=== PATIENT | female | born 1960 | race Caucasian/White ===

== ENCOUNTER 2021-03-29 06:22 | Inpatient (IN) ==
[2021-03-29] MEDS ORDERED: CeFAZolin Syr 2,000MG/20 ML 2,000 MG/20 ML SYRINGE IVPB ONE ×2 (06:56→14:30)
[2021-03-29] MEDS ORDERED: Ringers Solution, Lactated 1,000 ML IVC SCH (07:00)
[2021-03-29] MEDS ORDERED: *HR* Rocuronium Bromide 50 MG/5 ML VIAL ONE (07:15)
[2021-03-29] MEDS ORDERED: *HR* Succinylcholine 200 MG/10 ML VIAL IVP ONE (07:15)
[2021-03-29] MEDS ORDERED: Lidocaine HCL 4 ML Topical Solution (Laryng-O-Jet Kit Sterile Pak) TP ONE (07:15)
[2021-03-29] MEDS ORDERED: Ondansetron 4 MG/2 ML VIAL ONE (07:15)
[2021-03-29] MEDS ORDERED: Lidocaine -MPF 2% 2 ML VIAL ONE (07:15)
[2021-03-29] MEDS ORDERED: *HR* Propofol 200 MG/20 ML VIAL IVP ONE (07:16)
[2021-03-29] MEDS ORDERED: *HR* FentaNYL (PF) 100 MCG/2 ML VIAL ONE ×3 (07:16→14:54)
[2021-03-29] MEDS ORDERED: *HR* Remifentanil 1 MG VIAL IVP ONE ×2 (07:16→13:41)
[2021-03-29] MEDS ORDERED: Promethazine 6.25 MG in Water for inj. (sterile) 20 ML IVPB PRN (07:19)
[2021-03-29] MEDS ORDERED: *HR* HYDROmorphone PF 0.5 MG/0.5 ML SYRINGE IVP PRN (07:19)
[2021-03-29] MEDS ORDERED: Ondansetron 4 MG/2 ML VIAL IVP PRN ×2 (07:19→17:08)
[2021-03-29] MEDS ORDERED: *HR* OxyCODONE Immed Rel 5 MG TABLET PO PRN (07:19)
[2021-03-29] MEDS ORDERED: Heparin 1,000 UNITS/500 mL 500 ML ONE (07:24)
[2021-03-29] MEDS ORDERED: Bacitracin 50,000 UNIT, Polymyxin B Sulfate 500,000 UNIT, Sodium Chloride IRRigation 1,... IR ONE (07:45)
[2021-03-29] MEDS ORDERED: EPHEDrine 50 MG/ML VIAL ONE (08:26)
[2021-03-29] MEDS ORDERED: *HR* Midazolam HCl 2 MG/2 ML VIAL ONE (08:28)
[2021-03-29] MEDS ORDERED: Sugammadex Sodium 200 MG/2 ML VIAL IV ONE (10:17)
[2021-03-29 10:59] LABS: ABG Base Excess -2 mEq/L (-2 to 3); ABG Chloride 106 mEq/L (98-107); ABG Glucose 130 mg/dL (60-95); ABG HCO3 22 mEq/L (21-27); ABG Ionized Calcium 1.13 mmol/L (1.15-1.35); ABG Oxygen Saturation 100 % (95-98); ABG PCO2 34 mmHg (35-45); ABG PH 7.42 pH Units (7.32-7.45); ABG PO2 226 mmHg (85-104); ABG TCO2 23 mEq/L (20-26)
[2021-03-29] MEDS ORDERED: Albumin Human 5% 25.0 GM/500 ML IV.SOLN ONE ×2 (12:02→13:44)
[2021-03-29] MEDS ORDERED: *HR* HYDROMORPHONE 2 MG/ML VIAL ONE ×2 (12:52→15:55)
[2021-03-29 13:21] LABS: ABG Base Excess -2 mEq/L (-2 to 3); ABG Chloride 105 mEq/L (98-107); ABG Glucose 153 mg/dL (60-95); ABG HCO3 24 mEq/L (21-27); ABG Ionized Calcium 1.11 mmol/L (1.15-1.35); ABG Oxygen Saturation 100 % (95-98); ABG PCO2 41 mmHg (35-45); ABG PH 7.37 pH Units (7.32-7.45); ABG PO2 207 mmHg (85-104); ABG TCO2 25 mEq/L (20-26)
[2021-03-29] MEDS ORDERED: ceFAZolin 2,000 MG in 0.9 % Sodium Chloride 100 ML IVPB ONE (13:22)
[2021-03-29] MEDS ORDERED: *HR* Phenylephrine 10 MG/ML VIAL ONE (13:34)
[2021-03-29] MEDS ORDERED: *HR* Vasopressin 20 UNIT/ML VIAL ONE (13:44)
[2021-03-29] MEDS ORDERED: ACETAMINOPHEN 650 MG PO PRN (17:08)
[2021-03-29] MEDS ORDERED: Acetaminophen 325 MG TABLET PO PRN (17:08)
[2021-03-29] MEDS ORDERED: Naloxone 0.4 MG/ML INJ IVP PRN (17:08)
[2021-03-29] MEDS ORDERED: (Diclofenac Sodium [Voltaren] 100 GM Gel) TP PRN (17:34)
[2021-03-29] MEDS: ALOSETRON HCL 0.5 MG PO SCH (20:27)
[2021-03-29] MEDS: Gabapentin 300 MG CAPSULE PO SCH (20:37)
[2021-03-29] MEDS: rOPINIRole 1 MG TABLET PO SCH (20:37)
[2021-03-29] MEDS: atenoloL 50 MG TABLET PO SCH (20:37)
[2021-03-29] MEDS: Diclofenac Sodium (DR) 75 MG TABLET.DR PO SCH (22:12)
[2021-03-29] MEDS: *HR* OxyCODONE Immed Rel 5 MG TABLET PO PRN (22:12)
[2021-03-29] MEDS: CeFAZolin 2 GM/120 ML BAG IVPB SCH (22:13)
[2021-03-30] MEDS: *HR* OxyCODONE Immed Rel 5 MG TABLET PO PRN ×4 (04:12→22:22)
[2021-03-30] MEDS: CeFAZolin 2 GM/120 ML BAG IVPB SCH (04:12)
[2021-03-30] MEDS: Ringers Solution, Lactated 1,000 ML IVC SCH ×4 (08:12→22:24)
[2021-03-30] MEDS: methIMAzole 5 MG TABLET PO SCH (08:37)
[2021-03-30] MEDS: lisinopriL 20 MG TABLET PO SCH (08:37)
[2021-03-30] MEDS: atenoloL 50 MG TABLET PO SCH ×2 (08:37→20:32)
[2021-03-30] MEDS: NIFEdipine XL (24 HR) 30 MG TAB.ER.24 PO SCH (08:37)
[2021-03-30] MEDS: ARIPiprazole 10 MG TABLET PO SCH (08:37)
[2021-03-30] MEDS: Diclofenac Sodium (DR) 75 MG TABLET.DR PO SCH ×2 (08:38→20:32)
[2021-03-30] MEDS: Gabapentin 300 MG CAPSULE PO SCH ×3 (08:38→20:32)
[2021-03-30] MEDS: ALOSETRON HCL 0.5 MG PO SCH ×2 (08:38→20:33)
[2021-03-30 12:00] LABS: Basophils % 0.1 %; Hematocrit 23.8 % (35.3-44.9); Hemoglobin 7.7 g/dL (11.5-15.4); Immature Granulocytes % 0.5 % (0-4); Immature Platelets 5.9 % (1.1-6.1); Lymphocytes # 1.8 K/mcL (0.6-4.6); Lymphocytes % 10.2 %; Mean Corpuscular HGB Conc 32.4 g/dL (31.6-35.5); Mean Corpuscular Hemoglobin 29.1 pg (28.0-33.3); Mean Corpuscular Volume 89.8 fL (83.0-100.0); Mean Platelet Volume 10.3 fL (9.4-12.4); Monocytes # 1.4 K/mcL (0.0-1.3); Monocytes % 8.2 %; Neutrophils # 14.1 K/mcL (1.6-8.9); Platelet Count 130 K/mcL (140-400); Red Blood Count 2.65 M/mcL (3.82-4.97); Red Cell Distribution Width 13.2 % (11.5-14.5); White Blood Count 17.4 K/mcL (4.3-11.1)
[2021-03-30 12:16] LABS: BUN/Creatinine Ratio 17 (6-26); Blood Urea Nitrogen 11 mg/dL (8-23); Carbon Dioxide 26 mEq/L (23-29); Chloride 107 mEq/L (98-107); Glucose 118 mg/dL (70-105); Osmolality,Calculated 288 (280-300); Potassium 3.4 mEq/L (3.5-5.1); Sodium 139 mEq/L (136-145); eGFR For African Americans > 60 (> 60); eGFR For Non-African Americans > 60 (> 60)
[2021-03-30] MEDS ORDERED: 0.9 % Sodium Chloride 250 ML ONE (14:41)
[2021-03-30] MEDS: tiZANidine 4 MG TABLET PO PRN (17:57)
[2021-03-30] MEDS: *HR* HYDROcodone/Acet 5/325 mg TABLET PO PRN (17:57)
[2021-03-30 19:42] LABS: Hematocrit 25.1 % (35.3-44.9); Hemoglobin 8.7 g/dL (11.5-15.4)
[2021-03-30] MEDS: rOPINIRole 1 MG TABLET PO SCH (20:31)
[2021-03-31] MEDS: *HR* HYDROcodone/Acet 5/325 mg TABLET PO PRN ×3 (02:59→15:03)
[2021-03-31] MEDS: tiZANidine 4 MG TABLET PO PRN ×2 (05:45→23:13)
[2021-03-31] MEDS: NIFEdipine XL (24 HR) 30 MG TAB.ER.24 PO SCH (09:11)
[2021-03-31] MEDS: ARIPiprazole 10 MG TABLET PO SCH (09:11)
[2021-03-31] MEDS: methIMAzole 5 MG TABLET PO SCH (09:11)
[2021-03-31] MEDS: Gabapentin 300 MG CAPSULE PO SCH ×3 (09:11→21:16)
[2021-03-31] MEDS: Diclofenac Sodium (DR) 75 MG TABLET.DR PO SCH ×2 (09:11→21:16)
[2021-03-31] MEDS: lisinopriL 20 MG TABLET PO SCH (09:11)
[2021-03-31] MEDS: atenoloL 50 MG TABLET PO SCH ×2 (09:11→21:15)
[2021-03-31] MEDS: Ringers Solution, Lactated 1,000 ML IVC SCH (09:12)
[2021-03-31] MEDS: ALOSETRON HCL 0.5 MG PO SCH ×2 (09:13→21:16)
[2021-03-31] MEDS: *HR* OxyCODONE Immed Rel 5 MG TABLET PO PRN ×2 (11:05→21:15)
[2021-03-31 11:13] LABS: Hematocrit 26.6 % (35.3-44.9); Immature Platelets 6.6 % (1.1-6.1); Mean Corpuscular HGB Conc 33.8 g/dL (31.6-35.5); Mean Corpuscular Hemoglobin 30.2 pg (28.0-33.3); Mean Corpuscular Volume 89.3 fL (83.0-100.0); Mean Platelet Volume 11.1 fL (9.4-12.4); Red Blood Count 2.98 M/mcL (3.82-4.97); Red Cell Distribution Width 13.2 % (11.5-14.5); White Blood Count 14.3 K/mcL (4.3-11.1)
[2021-03-31 11:52] LABS: BUN/Creatinine Ratio 18 (6-26); Blood Urea Nitrogen 12 mg/dL (8-23); Calcium 8.3 mg/dL (8.6-10.3); Carbon Dioxide 26 mEq/L (23-29); Chloride 105 mEq/L (98-107); Glucose 127 mg/dL (70-105); Osmolality,Calculated 287 (280-300); Potassium 3.2 mEq/L (3.5-5.1); Sodium 138 mEq/L (136-145); eGFR For African Americans > 60 (> 60); eGFR For Non-African Americans > 60 (> 60)
[2021-03-31] MEDS: rOPINIRole 1 MG TABLET PO SCH (21:15)
[2021-04-01] MEDS: *HR* OxyCODONE Immed Rel 5 MG TABLET PO PRN ×2 (01:57→09:28)
[2021-04-01] MEDS: *HR* HYDROcodone/Acet 5/325 mg TABLET PO PRN ×2 (04:42→12:23)
[2021-04-01] MEDS: lisinopriL 20 MG TABLET PO SCH (09:26)
[2021-04-01] MEDS: atenoloL 50 MG TABLET PO SCH (09:27)
[2021-04-01] MEDS: Diclofenac Sodium (DR) 75 MG TABLET.DR PO SCH (09:27)
[2021-04-01] MEDS: Gabapentin 300 MG CAPSULE PO SCH (09:27)
[2021-04-01] MEDS: methIMAzole 5 MG TABLET PO SCH (09:27)
[2021-04-01] MEDS: ARIPiprazole 10 MG TABLET PO SCH (09:28)
[2021-04-01] MEDS: ALOSETRON HCL 0.5 MG PO SCH (09:28)
[2021-04-01] MEDS: NIFEdipine XL (24 HR) 30 MG TAB.ER.24 PO SCH (09:28)
[2021-04-01 10:52] LABS: Hemoglobin 8.9 g/dL (11.5-15.4); Mean Corpuscular Hemoglobin 29.8 pg (28.0-33.3); Mean Corpuscular Volume 90.3 fL (83.0-100.0); Mean Platelet Volume 10.2 fL (9.4-12.4); Platelet Count 149 K/mcL (140-400); Red Blood Count 2.99 M/mcL (3.82-4.97); White Blood Count 14.1 K/mcL (4.3-11.1)
[2021-04-01 11:16] VITALS: BP 103/63
[2021-04-01 11:20] LABS: BUN/Creatinine Ratio 20 (6-26); Blood Urea Nitrogen 13 mg/dL (8-23); Calcium 8.6 mg/dL (8.6-10.3); Carbon Dioxide 24 mEq/L (23-29); Chloride 105 mEq/L (98-107); Glucose 117 mg/dL (70-105); Osmolality,Calculated 285 (280-300); Potassium 3.2 mEq/L (3.5-5.1); Sodium 137 mEq/L (136-145); eGFR For African Americans > 60 (> 60); eGFR For Non-African Americans > 60 (> 60)
[2021-04-04] MEDS ORDERED: Fluconazole 150 MG TABLET PO SCH (09:00)
[2021-04-04] MEDS ORDERED: NON-FORMULARY MEDICATION 1 EACH EACH (Alendronate Sodium [Fosamax] 70 MG Tablet) PO SCH (15:59)
== END 2021-04-01 16:30 | disposition home health service (06) | DRG 454 ==
LOC: 3NENU 06:22 → SAMDAY 06:22 → 3NENU 17:08
PROVIDERS: ADMIT Orthopaedic Surgery Orthopaedic Surgery of the Spine; ATTEND Orthopaedic Surgery Orthopaedic Surgery of the Spine

== ENCOUNTER 2022-01-09 10:58 | Inpatient (IN) ==
[2022-01-09] MEDS ORDERED: Piperacillin/Tazobactam 3.375 GM in 0.9 % Sodium Chloride Mini Bag 100 ML IVPB ONE (11:14)
[2022-01-09] MEDS ORDERED: *HR* FentaNYL (PF) 100 MCG/2 ML VIAL IVP ONE (11:19)
[2022-01-09 12:19] LABS: BUN/Creatinine Ratio 36 (6-26); Blood Urea Nitrogen 28 mg/dL (8-23); Calcium 8.8 mg/dL (8.6-10.3); Carbon Dioxide 24 mEq/L (23-29); Chloride 99 mEq/L (98-107); Glucose 110 mg/dL (70-105); Osmolality,Calculated 280 (280-300); Potassium 3.4 mEq/L (3.5-5.1); Sodium 132 mEq/L (136-145); eGFR For African Americans > 60 (> 60); eGFR For Non-African Americans > 60 (> 60)
[2022-01-09 13:01] LABS: Hematocrit 35.4 % (35.3-44.9); Hemoglobin 11.8 g/dL (11.5-15.4); Mean Corpuscular HGB Conc 33.3 g/dL (31.6-35.5); Mean Corpuscular Hemoglobin 29.4 pg (28.0-33.3); Mean Corpuscular Volume 88.1 fL (83.0-100.0); Mean Platelet Volume 10.8 fL (9.4-12.4); Platelet Count 209 K/mcL (140-400); Red Blood Count 4.02 M/mcL (3.82-4.97); Red Cell Distribution Width 13.6 % (11.5-14.5); White Blood Count 17.7 K/mcL (4.3-11.1)
[2022-01-09] MEDS ORDERED: Naloxone 0.4 MG/ML INJ IVP PRN ×2 (13:13→13:45)
[2022-01-09] MEDS ORDERED: Ipratropium Neb 0.5 MG NEBULIZER IH PRN (13:13)
[2022-01-09] MEDS ORDERED: Albuterol 2.5 MG/3 ML NEBULIZER IH PRN (13:13)
[2022-01-09] MEDS ORDERED: *HR* Labetalol 20 MG/4 ML SYRINGE IVP PRN (13:13)
[2022-01-09] MEDS ORDERED: Acetaminophen IV 1,000 MG/100 ML BAG IVPB PRN (13:13)
[2022-01-09] MEDS ORDERED: flumazeniL 0.5 MG/5 ML VIAL IVP PRN (13:13)
[2022-01-09] MEDS ORDERED: *HR* OxyCODONE Immed Rel 5 MG TABLET PO PRN (13:13)
[2022-01-09] MEDS ORDERED: *HR* HYDROmorphone PF 0.5 MG/0.5 ML SYRINGE IVP PRN (13:13)
[2022-01-09] MEDS ORDERED: Promethazine 6.25 MG in Water for inj. (sterile) 20 ML IVPB PRN (13:13)
[2022-01-09] MEDS ORDERED: Ondansetron 4 MG/2 ML VIAL IVP PRN (13:13)
[2022-01-09] MEDS ORDERED: *HR* FentaNYL (PF) 100 MCG/2 ML VIAL ONE ×3 (13:16→15:38)
[2022-01-09] MEDS ORDERED: *HR* Midazolam HCl 2 MG/2 ML VIAL ONE (13:16)
[2022-01-09] MEDS ORDERED: *HR* Propofol 200 MG/20 ML VIAL IVP ONE ×2 (13:16→16:29)
[2022-01-09] MEDS ORDERED: Lidocaine -MPF 2% 5 ML VIAL ONE (13:17)
[2022-01-09] MEDS ORDERED: *HR* Rocuronium Bromide 50 MG/5 ML VIAL ONE ×2 (13:17→15:35)
[2022-01-09] MEDS ORDERED: Lidocaine HCL 4 ML Topical Solution (Laryng-O-Jet Kit Sterile Pak) TP ONE (13:17)
[2022-01-09 13:36] LABS: Lymphocytes # 0.7 K/mcL (0.6-4.6); Monocytes # 0.4 K/mcL (0.0-1.3); Neutrophils # 16.6 K/mcL (1.6-8.9)
[2022-01-09 13:37] LABS: Platelet Estimate Normal (Normal)
[2022-01-09] MEDS ORDERED: CefOXitin 1,000 MG VIAL ONE (13:44)
[2022-01-09] MEDS ORDERED: *HR* Metoprolol 5 MG/5 ML VIAL IVP ONE ×2 (14:28→17:27)
[2022-01-09] MEDS ORDERED: *HR* HYDROMORPHONE 2 MG/ML VIAL ONE (16:12)
[2022-01-09] MEDS ORDERED: *HR* Labetalol 20 MG/4 ML SYRINGE IVP ONE (16:16)
[2022-01-09] MEDS: 0.9 % Sodium Chloride 1,000 ML IVC SCH (19:20)
[2022-01-09 19:43] LABS: Hematocrit 37.5 % (35.3-44.9); Hemoglobin 12.3 g/dL (11.5-15.4); Mean Corpuscular HGB Conc 32.8 g/dL (31.6-35.5); Mean Corpuscular Hemoglobin 29.1 pg (28.0-33.3); Mean Corpuscular Volume 88.7 fL (83.0-100.0); Mean Platelet Volume 10.6 fL (9.4-12.4); Platelet Count 231 K/mcL (140-400); Red Blood Count 4.23 M/mcL (3.82-4.97); Red Cell Distribution Width 13.6 % (11.5-14.5); White Blood Count 16.1 K/mcL (4.3-11.1)
[2022-01-09 20:57] LABS: Lymphocytes # 0.3 K/mcL (0.6-4.6); Neutrophils # 15.8 K/mcL (1.6-8.9)
[2022-01-09 20:58] LABS: Platelet Estimate Normal (Normal)
[2022-01-09] MEDS: Piperacillin/Tazobactam 3.375 GM in 0.9 % Sodium Chloride Mini Bag 100 ML IVPB SCH (23:37)
[2022-01-10] MEDS: Morphine Sulfate 2 MG/ML SYRINGE IVP PRN ×4 (01:18→20:03)
[2022-01-10 05:38] LABS: BUN/Creatinine Ratio 30 (6-26); Blood Urea Nitrogen 25 mg/dL (8-23); Calcium 8.4 mg/dL (8.6-10.3); Carbon Dioxide 26 mEq/L (23-29); Chloride 103 mEq/L (98-107); Glucose 129 mg/dL (70-105); Osmolality,Calculated 290 (280-300); Potassium 4.3 mEq/L (3.5-5.1); Sodium 137 mEq/L (136-145); Thyroid Stimulating Hormone 0.227 mcIU/mL (0.340-5.600); eGFR For African Americans > 60 (> 60); eGFR For Non-African Americans > 60 (> 60)
[2022-01-10] MEDS: Piperacillin/Tazobactam 3.375 GM in 0.9 % Sodium Chloride Mini Bag 100 ML IVPB SCH ×3 (09:37→23:24)
[2022-01-10] MEDS: Pantoprazole 40 MG VIAL IVP SCH (09:38)
[2022-01-10] MEDS: 0.9 % Sodium Chloride 1,000 ML IVC SCH (13:00)
[2022-01-10] MEDS: Ondansetron 4 MG/2 ML VIAL IVP PRN (14:01)
[2022-01-11] MEDS: Morphine Sulfate 2 MG/ML SYRINGE IVP PRN ×4 (00:21→22:26)
[2022-01-11] MEDS: Ondansetron 4 MG/2 ML VIAL IVP PRN (00:21)
[2022-01-11] MEDS: 0.9 % Sodium Chloride 1,000 ML IVC SCH (05:04)
[2022-01-11 08:26] LABS: Basophils # 0.1 K/mcL (0.0-0.2); Basophils % 0.4 %; Eosinophils # 0.1 K/mcL (0.0-0.6); Eosinophils % 0.3 %; Hematocrit 34.8 % (35.3-44.9); Hemoglobin 11.7 g/dL (11.5-15.4); Immature Granulocytes % 1.4 % (0-4); Lymphocytes # 1.3 K/mcL (0.6-4.6); Lymphocytes % 7.5 %; Mean Corpuscular HGB Conc 33.6 g/dL (31.6-35.5); Mean Corpuscular Hemoglobin 29.2 pg (28.0-33.3); Mean Corpuscular Volume 86.8 fL (83.0-100.0); Mean Platelet Volume 9.8 fL (9.4-12.4); Monocytes # 1.5 K/mcL (0.0-1.3); Neutrophils # 13.6 K/mcL (1.6-8.9); Platelet Count 249 K/mcL (140-400); Red Blood Count 4.01 M/mcL (3.82-4.97); Red Cell Distribution Width 13.2 % (11.5-14.5); Segmented Neutrophils % 81.4 %; White Blood Count 16.8 K/mcL (4.3-11.1)
[2022-01-11 08:45] LABS: Alanine Aminotransferase 15 Units/L (7-52); Albumin 3.3 g/dL (3.5-5.7); Albumin/Globulin Ratio 1.1 (1.1-2.2); Alkaline Phosphatase 67 Units/L (34-104); Aspartate Amino Transferase 27 Units/L (13-39); BUN/Creatinine Ratio 25 (6-26); Bilirubin,Total 0.6 mg/dL (0.3-1.0); Blood Urea Nitrogen 16 mg/dL (8-23); Calcium 8.4 mg/dL (8.6-10.3); Carbon Dioxide 28 mEq/L (23-29); Chloride 98 mEq/L (98-107); Globulin 2.9 g/dL (2.4-3.5); Glucose 93 mg/dL (70-105); Osmolality,Calculated 287 (280-300); Potassium 2.7 mEq/L (3.5-5.1); Sodium 138 mEq/L (136-145); Total Protein 6.2 g/dL (6.4-8.9); eGFR For African Americans > 60 (> 60); eGFR For Non-African Americans > 60 (> 60)
[2022-01-11] MEDS: Pantoprazole 40 MG VIAL IVP SCH (08:55)
[2022-01-11] MEDS: Piperacillin/Tazobactam 3.375 GM in 0.9 % Sodium Chloride Mini Bag 100 ML IVPB SCH ×3 (08:56→23:42)
[2022-01-11] MEDS: lisinopriL 20 MG TABLET PO SCH ×2 (08:57→19:31)
[2022-01-11] MEDS: NIFEdipine XL (24 HR) 30 MG TAB.ER.24 PO SCH (08:57)
[2022-01-11] MEDS: atenoloL 50 MG TABLET PO SCH ×2 (08:57→19:31)
[2022-01-11 09:10] LABS: Magnesium 1.6 mg/dL (1.6-2.6); Phosphorous 1.8 mg/dL (2.7-4.5)
[2022-01-11] MEDS ORDERED: Potassium Chloride Elixir 20 MEQ/15 ML UDC PO ONE (10:03)
[2022-01-12] MEDS: 0.9 % Sodium Chloride 1,000 ML IVC SCH ×2 (02:49→20:12)
[2022-01-12 05:59] LABS: Basophils # 0.1 K/mcL (0.0-0.2); Basophils % 0.8 %; Eosinophils % 0.2 %; Hematocrit 35.4 % (35.3-44.9); Hemoglobin 12.1 g/dL (11.5-15.4); Immature Granulocytes % 3.2 % (0-4); Lymphocytes # 1.8 K/mcL (0.6-4.6); Mean Corpuscular HGB Conc 34.2 g/dL (31.6-35.5); Mean Corpuscular Hemoglobin 29.2 pg (28.0-33.3); Mean Corpuscular Volume 85.3 fL (83.0-100.0); Mean Platelet Volume 9.6 fL (9.4-12.4); Monocytes # 1.7 K/mcL (0.0-1.3); Monocytes % 11.1 %; Platelet Count 262 K/mcL (140-400); Red Blood Count 4.15 M/mcL (3.82-4.97); Red Cell Distribution Width 13.3 % (11.5-14.5); Segmented Neutrophils % 72.7 %; White Blood Count 15.1 K/mcL (4.3-11.1)
[2022-01-12 06:54] LABS: Alanine Aminotransferase 13 Units/L (7-52); Albumin 3.2 g/dL (3.5-5.7); Albumin/Globulin Ratio 1.2 (1.1-2.2); Alkaline Phosphatase 64 Units/L (34-104); Aspartate Amino Transferase 19 Units/L (13-39); BUN/Creatinine Ratio 23 (6-26); Bilirubin,Total 0.7 mg/dL (0.3-1.0); Blood Urea Nitrogen 14 mg/dL (8-23); Calcium 8.4 mg/dL (8.6-10.3); Carbon Dioxide 27 mEq/L (23-29); Chloride 99 mEq/L (98-107); Globulin 2.7 g/dL (2.4-3.5); Glucose 129 mg/dL (70-105); Magnesium 1.4 mg/dL (1.6-2.6); Osmolality,Calculated 282 (280-300); Phosphorous 2.4 mg/dL (2.7-4.5); Sodium 135 mEq/L (136-145); Total Protein 5.9 g/dL (6.4-8.9); eGFR For African Americans > 60 (> 60); eGFR For Non-African Americans > 60 (> 60)
[2022-01-12] MEDS ORDERED: Potassium Chloride Elixir 20 MEQ/15 ML UDC PO ONE (07:49)
[2022-01-12] MEDS: NIFEdipine XL (24 HR) 30 MG TAB.ER.24 PO SCH (09:05)
[2022-01-12] MEDS: lisinopriL 20 MG TABLET PO SCH ×2 (09:05→20:10)
[2022-01-12] MEDS: atenoloL 50 MG TABLET PO SCH ×2 (09:05→20:10)
[2022-01-12] MEDS: ARIPiprazole 10 MG TABLET PO SCH (09:05)
[2022-01-12] MEDS: Pantoprazole 40 MG VIAL IVP SCH (09:06)
[2022-01-12] MEDS: Piperacillin/Tazobactam 3.375 GM in 0.9 % Sodium Chloride Mini Bag 100 ML IVPB SCH ×3 (09:09→23:50)
[2022-01-12] MEDS: Acetaminophen 325 MG TABLET PO SCH ×3 (13:43→23:51)
[2022-01-12] MEDS: polyethylene glycoL 3350 17 GM POWD.PACK PO SCH (13:43)
[2022-01-12] MEDS: Ibuprofen 600 MG TABLET PO SCH ×2 (17:40→23:51)
[2022-01-13 02:08] LABS: Basophils # 0.1 K/mcL (0.0-0.2); Basophils % 0.8 %; Eosinophils # 0.1 K/mcL (0.0-0.6); Hematocrit 34.1 % (35.3-44.9); Hemoglobin 11.4 g/dL (11.5-15.4); Immature Granulocytes % 4.5 % (0-4); Lymphocytes # 1.9 K/mcL (0.6-4.6); Lymphocytes % 16.4 %; Mean Corpuscular HGB Conc 33.4 g/dL (31.6-35.5); Mean Corpuscular Hemoglobin 29.2 pg (28.0-33.3); Mean Corpuscular Volume 87.2 fL (83.0-100.0); Mean Platelet Volume 9.7 fL (9.4-12.4); Monocytes # 1.4 K/mcL (0.0-1.3); Monocytes % 11.9 %; Neutrophils # 7.7 K/mcL (1.6-8.9); Platelet Count 283 K/mcL (140-400); Red Blood Count 3.91 M/mcL (3.82-4.97); Red Cell Distribution Width 13.5 % (11.5-14.5); Segmented Neutrophils % 65.4 %; White Blood Count 11.8 K/mcL (4.3-11.1)
[2022-01-13 02:30] LABS: Alanine Aminotransferase 14 Units/L (7-52); Albumin 2.8 g/dL (3.5-5.7); Albumin/Globulin Ratio 1.1 (1.1-2.2); Alkaline Phosphatase 54 Units/L (34-104); Aspartate Amino Transferase 17 Units/L (13-39); BUN/Creatinine Ratio 18 (6-26); Bilirubin,Total 0.7 mg/dL (0.3-1.0); Blood Urea Nitrogen 11 mg/dL (8-23); Calcium 7.7 mg/dL (8.6-10.3); Carbon Dioxide 25 mEq/L (23-29); Chloride 102 mEq/L (98-107); Globulin 2.5 g/dL (2.4-3.5); Glucose 113 mg/dL (70-105); Magnesium 1.4 mg/dL (1.6-2.6); Osmolality,Calculated 278 (280-300); Phosphorous 3.1 mg/dL (2.7-4.5); Potassium 2.8 mEq/L (3.5-5.1); Sodium 134 mEq/L (136-145); Total Protein 5.3 g/dL (6.4-8.9); eGFR For African Americans > 60 (> 60); eGFR For Non-African Americans > 60 (> 60)
[2022-01-13 02:43] LABS: Thyroid Stimulating Hormone 1.067 mcIU/mL (0.340-5.600)
[2022-01-13 02:45] LABS: Triiodothyronine (T3) Free 3.38 pg/mL (2.50-3.90)
[2022-01-13 02:48] LABS: Reactive Lymphocytes Present (Not Present)
[2022-01-13 02:49] LABS: Large Platelets Present (Not Present)
[2022-01-13] MEDS: Acetaminophen 325 MG TABLET PO SCH ×3 (05:25→17:48)
[2022-01-13] MEDS: NIFEdipine XL (24 HR) 30 MG TAB.ER.24 PO SCH (07:40)
[2022-01-13] MEDS: polyethylene glycoL 3350 17 GM POWD.PACK PO SCH (07:40)
[2022-01-13] MEDS: atenoloL 50 MG TABLET PO SCH ×2 (07:40→20:15)
[2022-01-13] MEDS: Pantoprazole 40 MG VIAL IVP SCH (07:40)
[2022-01-13] MEDS: lisinopriL 20 MG TABLET PO SCH ×2 (07:40→20:15)
[2022-01-13] MEDS: Ibuprofen 600 MG TABLET PO SCH ×2 (07:40→15:03)
[2022-01-13] MEDS: Piperacillin/Tazobactam 3.375 GM in 0.9 % Sodium Chloride Mini Bag 100 ML IVPB SCH ×2 (07:41→16:11)
[2022-01-13] MEDS: ARIPiprazole 10 MG TABLET PO SCH (08:01)
[2022-01-13] MEDS ORDERED: Potassium Chloride Elixir 20 MEQ/15 ML UDC PO ONE ×2 (08:39→17:30)
[2022-01-13 16:50] LABS: BUN/Creatinine Ratio 17 (6-26); Blood Urea Nitrogen 11 mg/dL (8-23); Calcium 8.1 mg/dL (8.6-10.3); Carbon Dioxide 23 mEq/L (23-29); Chloride 103 mEq/L (98-107); Glucose 122 mg/dL (70-105); Osmolality,Calculated 279 (280-300); Potassium 3.4 mEq/L (3.5-5.1); Sodium 134 mEq/L (136-145); eGFR For African Americans > 60 (> 60); eGFR For Non-African Americans > 60 (> 60)
[2022-01-14] MEDS: Ibuprofen 600 MG TABLET PO SCH ×2 (00:32→08:01)
[2022-01-14] MEDS: Piperacillin/Tazobactam 3.375 GM in 0.9 % Sodium Chloride Mini Bag 100 ML IVPB SCH ×2 (00:32→07:58)
[2022-01-14] MEDS: Acetaminophen 325 MG TABLET PO SCH ×3 (00:33→11:34)
[2022-01-14 02:58] LABS: Basophils # 0.1 K/mcL (0.0-0.2); Basophils % 0.4 %; Eosinophils # 0.2 K/mcL (0.0-0.6); Hematocrit 32.4 % (35.3-44.9); Hemoglobin 10.6 g/dL (11.5-15.4); Immature Granulocytes % 3.6 % (0-4); Lymphocytes # 2.2 K/mcL (0.6-4.6); Mean Corpuscular HGB Conc 32.7 g/dL (31.6-35.5); Mean Corpuscular Hemoglobin 28.6 pg (28.0-33.3); Mean Corpuscular Volume 87.6 fL (83.0-100.0); Mean Platelet Volume 9.5 fL (9.4-12.4); Monocytes # 1.3 K/mcL (0.0-1.3); Monocytes % 8.9 %; Neutrophils # 10.2 K/mcL (1.6-8.9); Platelet Count 321 K/mcL (140-400); Red Cell Distribution Width 13.5 % (11.5-14.5); Segmented Neutrophils % 71.1 %; White Blood Count 14.3 K/mcL (4.3-11.1)
[2022-01-14 03:18] LABS: BUN/Creatinine Ratio 15 (6-26); Blood Urea Nitrogen 10 mg/dL (8-23); Calcium 8.3 mg/dL (8.6-10.3); Carbon Dioxide 26 mEq/L (23-29); Chloride 101 mEq/L (98-107); Glucose 110 mg/dL (70-105); Magnesium 1.8 mg/dL (1.6-2.6); Osmolality,Calculated 282 (280-300); Potassium 3.1 mEq/L (3.5-5.1); Sodium 136 mEq/L (136-145); eGFR For African Americans > 60 (> 60); eGFR For Non-African Americans > 60 (> 60)
[2022-01-14] MEDS: Pantoprazole 40 MG VIAL IVP SCH (07:59)
[2022-01-14] MEDS: NIFEdipine XL (24 HR) 30 MG TAB.ER.24 PO SCH (08:00)
[2022-01-14] MEDS: ARIPiprazole 10 MG TABLET PO SCH (08:00)
[2022-01-14] MEDS: lisinopriL 20 MG TABLET PO SCH (08:00)
[2022-01-14] MEDS: atenoloL 50 MG TABLET PO SCH (08:00)
[2022-01-14] MEDS: polyethylene glycoL 3350 17 GM POWD.PACK PO SCH (08:00)
[2022-01-14] MEDS ORDERED: Magnesium Oxide 400 MG TABLET PO SCH (09:00)
[2022-01-14 14:48] VITALS: BP 121/73; PULSE 75; TEMP 98; O2SAT 98
[2022-01-14 16:12] LABS: BUN/Creatinine Ratio 14 (6-26); Blood Urea Nitrogen 10 mg/dL (8-23); Calcium 8.3 mg/dL (8.6-10.3); Carbon Dioxide 26 mEq/L (23-29); Chloride 103 mEq/L (98-107); Glucose 139 mg/dL (70-105); Osmolality,Calculated 283 (280-300); Potassium 3.7 mEq/L (3.5-5.1); Sodium 136 mEq/L (136-145); eGFR For African Americans > 60 (> 60); eGFR For Non-African Americans > 60 (> 60)
== END 2022-01-14 17:35 | disposition home health service (06) | DRG 853 ==
LOC: EMEROOARM 10:58 → 3ANU 10:58 → SUATTDRO 14:19
PROVIDERS: ADMIT Student in an Organized Health Care Education/Training Program; ATTEND Internal Medicine

== ENCOUNTER 2022-04-29 11:44 | Inpatient (IN) ==
[2022-04-29] MEDS ORDERED: *HR* HYDROmorphone PF 0.5 MG/0.5 ML SYRINGE IVP PRN (12:46)
[2022-04-29] MEDS ORDERED: CeFAZolin Syr 2,000MG/20 ML 2,000 MG/20 ML SYRINGE IVPB ONE (13:05)
[2022-04-29] MEDS ORDERED: MetroNIDAZOLE 500 MG/100 ML 500 MG/100 ML BAG IVPB ONE (13:06)
[2022-04-29] MEDS ORDERED: Ringers Solution, Lactated 1,000 ML IVC SCH (13:15)
[2022-04-29] MEDS ORDERED: *HR* FentaNYL (PF) 100 MCG/2 ML VIAL ONE ×2 (13:32→15:36)
[2022-04-29] MEDS ORDERED: *HR* Propofol 200 MG/20 ML VIAL IVP ONE (13:33)
[2022-04-29] MEDS ORDERED: *HR* Midazolam HCl 2 MG/2 ML VIAL ONE (14:12)
[2022-04-29] MEDS ORDERED: Ondansetron 4 MG/2 ML VIAL ONE (14:49)
[2022-04-29] MEDS ORDERED: Lidocaine -MPF 2% 5 ML VIAL ONE (14:49)
[2022-04-29] MEDS ORDERED: *HR* Rocuronium Bromide 50 MG/5 ML VIAL ONE (14:49)
[2022-04-29] MEDS ORDERED: Ketamine HCL *QUVA* 50mg (1mL) SYRINGE ONE (14:51)
[2022-04-29] MEDS ORDERED: EPHEDrine 50 MG/ML VIAL ONE (14:54)
[2022-04-29] MEDS ORDERED: *HR* HYDROMORPHONE 2 MG/ML VIAL ONE (16:59)
[2022-04-29] MEDS ORDERED: Sugammadex Sodium 200 MG/2 ML VIAL IV ONE (17:17)
[2022-04-29] MEDS ORDERED: *HR* HYDROmorphone 2 MG/ML SYRINGE IVP PRN (18:52)
[2022-04-29] MEDS ORDERED: Orphenadrine 60 MG/2 ML VIAL IVP PRN (18:52)
[2022-04-29] MEDS ORDERED: Naloxone 0.4 MG/ML INJ IVP PRN (18:52)
[2022-04-29] MEDS: 0.9 % Sodium Chloride 1,000 ML IVC SCH (19:34)
[2022-04-29] MEDS: Acetaminophen IV 1,000 MG/100 ML BAG IVPB SCH ×2 (19:34→23:34)
[2022-04-29 19:44] LABS: Basophils % 0.1 %; Hematocrit 39.5 % (35.3-44.9); Immature Granulocytes % 0.4 % (0-4); Lymphocytes # 0.9 K/mcL (0.6-4.6); Lymphocytes % 4.4 %; Mean Corpuscular HGB Conc 30.4 g/dL (31.6-35.5); Mean Corpuscular Hemoglobin 27.3 pg (28.0-33.3); Mean Corpuscular Volume 89.8 fL (83.0-100.0); Mean Platelet Volume 9.6 fL (9.4-12.4); Monocytes % 4.8 %; Neutrophils # 19.5 K/mcL (1.6-8.9); Platelet Count 322 K/mcL (140-400); Red Cell Distribution Width 15.1 % (11.5-14.5); Segmented Neutrophils % 90.3 %; White Blood Count 21.6 K/mcL (4.3-11.1)
[2022-04-29 20:03] LABS: BUN/Creatinine Ratio 16 (6-26); Blood Urea Nitrogen 15 mg/dL (8-23); Calcium 8.1 mg/dL (8.6-10.3); Carbon Dioxide 21 mEq/L (23-29); Chloride 111 mEq/L (98-107); Glucose 141 mg/dL (70-105); Magnesium 1.3 mg/dL (1.6-2.6); Osmolality,Calculated 289 (280-300); Phosphorous 3.9 mg/dL (2.7-4.5); Potassium 3.7 mEq/L (3.5-5.1); Sodium 138 mEq/L (136-145); eGFR For African Americans > 60 (> 60); eGFR For Non-African Americans > 60 (> 60)
[2022-04-29] MEDS: rOPINIRole 1 MG TABLET PO SCH (20:33)
[2022-04-29] MEDS: atenoloL 50 MG TABLET PO SCH (20:33)
[2022-04-29] MEDS: lisinopriL 20 MG TABLET PO SCH (20:34)
[2022-04-29] MEDS ORDERED: Ketorolac 30 MG/ML VIAL IVP ONE (21:00)
[2022-04-30 02:11] LABS: Basophils % 0.1 %; Hematocrit 34.2 % (35.3-44.9); Hemoglobin 10.5 g/dL (11.5-15.4); Immature Granulocytes % 0.4 % (0-4); Lymphocytes # 0.9 K/mcL (0.6-4.6); Mean Corpuscular HGB Conc 30.7 g/dL (31.6-35.5); Mean Corpuscular Hemoglobin 27.5 pg (28.0-33.3); Mean Corpuscular Volume 89.5 fL (83.0-100.0); Mean Platelet Volume 9.6 fL (9.4-12.4); Monocytes # 1.2 K/mcL (0.0-1.3); Monocytes % 5.4 %; Neutrophils # 19.4 K/mcL (1.6-8.9); Platelet Count 259 K/mcL (140-400); Red Blood Count 3.82 M/mcL (3.82-4.97); Red Cell Distribution Width 15.1 % (11.5-14.5); Segmented Neutrophils % 90.1 %; White Blood Count 21.5 K/mcL (4.3-11.1)
[2022-04-30 02:34] LABS: BUN/Creatinine Ratio 20 (6-26); Blood Urea Nitrogen 17 mg/dL (8-23); Calcium 7.7 mg/dL (8.6-10.3); Carbon Dioxide 21 mEq/L (23-29); Chloride 111 mEq/L (98-107); Glucose 130 mg/dL (70-105); Magnesium 1.3 mg/dL (1.6-2.6); Osmolality,Calculated 289 (280-300); Phosphorous 4.1 mg/dL (2.7-4.5); Potassium 3.7 mEq/L (3.5-5.1); Sodium 138 mEq/L (136-145); eGFR For African Americans > 60 (> 60); eGFR For Non-African Americans > 60 (> 60)
[2022-04-30] MEDS: Ketorolac 30 MG/ML VIAL IVP SCH ×4 (03:58→21:20)
[2022-04-30] MEDS ORDERED: Ketorolac 30 MG/ML VIAL IVP SCH (04:00)
[2022-04-30] MEDS: Acetaminophen IV 1,000 MG/100 ML BAG IVPB SCH ×4 (05:45→23:11)
[2022-04-30] MEDS: ARIPiprazole 10 MG TABLET PO SCH (08:58)
[2022-04-30] MEDS: NIFEdipine XL (24 HR) 30 MG TAB.ER.24 PO SCH (08:58)
[2022-04-30] MEDS: atenoloL 50 MG TABLET PO SCH ×2 (08:58→21:23)
[2022-04-30] MEDS: lisinopriL 20 MG TABLET PO SCH ×2 (08:58→21:23)
[2022-04-30] MEDS: 0.9 % Sodium Chloride 1,000 ML IVC SCH (09:05)
[2022-04-30 18:00] LABS: BUN/Creatinine Ratio 22 (6-26); Blood Urea Nitrogen 15 mg/dL (8-23); Carbon Dioxide 22 mEq/L (23-29); Chloride 108 mEq/L (98-107); Glucose 114 mg/dL (70-105); Magnesium 2.1 mg/dL (1.6-2.6); Osmolality,Calculated 282 (280-300); Phosphorous 2.2 mg/dL (2.7-4.5); Potassium 4.3 mEq/L (3.5-5.1); Sodium 135 mEq/L (136-145); eGFR For African Americans > 60 (> 60); eGFR For Non-African Americans > 60 (> 60)
[2022-04-30] MEDS: D5% in 0.45% NACL w KCl 20 MEQ/1,000 ML MLS IVC SCH (18:03)
[2022-04-30] MEDS: rOPINIRole 1 MG TABLET PO SCH (21:23)
[2022-05-01] MEDS: Ketorolac 30 MG/ML VIAL IVP SCH ×4 (04:40→22:24)
[2022-05-01] MEDS: Acetaminophen IV 1,000 MG/100 ML BAG IVPB SCH ×3 (04:43→17:00)
[2022-05-01] MEDS: D5% in 0.45% NACL w KCl 20 MEQ/1,000 ML MLS IVC SCH ×2 (06:19→21:23)
[2022-05-01] MEDS: *HR* Enoxaparin 40 MG/0.4 ML SYRINGE SQ SCH (06:19)
[2022-05-01] MEDS: lisinopriL 20 MG TABLET PO SCH ×2 (09:17→21:25)
[2022-05-01] MEDS: NIFEdipine XL (24 HR) 30 MG TAB.ER.24 PO SCH (09:17)
[2022-05-01] MEDS: ARIPiprazole 10 MG TABLET PO SCH (09:17)
[2022-05-01] MEDS: atenoloL 50 MG TABLET PO SCH ×2 (09:18→21:25)
[2022-05-01] MEDS: METHIMAZOLE 2.5 MG PO SCH (09:18)
[2022-05-01 16:22] LABS: Basophils % 0.2 %; Eosinophils % 0.1 %; Hematocrit 32.6 % (35.3-44.9); Hemoglobin 10.5 g/dL (11.5-15.4); Immature Granulocytes % 0.4 % (0-4); Lymphocytes # 2.3 K/mcL (0.6-4.6); Lymphocytes % 13.5 %; Mean Corpuscular HGB Conc 32.2 g/dL (31.6-35.5); Mean Corpuscular Hemoglobin 27.7 pg (28.0-33.3); Mean Platelet Volume 9.9 fL (9.4-12.4); Monocytes # 1.3 K/mcL (0.0-1.3); Monocytes % 7.6 %; Neutrophils # 13.6 K/mcL (1.6-8.9); Platelet Count 263 K/mcL (140-400); Red Blood Count 3.79 M/mcL (3.82-4.97); Red Cell Distribution Width 15.1 % (11.5-14.5); Segmented Neutrophils % 78.2 %; White Blood Count 17.4 K/mcL (4.3-11.1)
[2022-05-01 16:42] LABS: BUN/Creatinine Ratio 10 (6-26); Blood Urea Nitrogen 6 mg/dL (8-23); Calcium 8.4 mg/dL (8.6-10.3); Carbon Dioxide 25 mEq/L (23-29); Chloride 103 mEq/L (98-107); Glucose 116 mg/dL (70-105); Magnesium 1.4 mg/dL (1.6-2.6); Osmolality,Calculated 277 (280-300); Phosphorous < 1.0 mg/dL (2.7-4.5); Potassium 3.4 mEq/L (3.5-5.1); Sodium 134 mEq/L (136-145); eGFR For African Americans > 60 (> 60); eGFR For Non-African Americans > 60 (> 60)
[2022-05-01] MEDS ORDERED: Potassium Phosphate 44 MEQ in 0.9 % Sodium Chloride 250 ML IVPB ONE (16:51)
[2022-05-01] MEDS: rOPINIRole 1 MG TABLET PO SCH (21:24)
[2022-05-02] MEDS: Acetaminophen IV 1,000 MG/100 ML BAG IVPB SCH ×2 (00:16→05:59)
[2022-05-02] MEDS: Ketorolac 30 MG/ML VIAL IVP SCH (04:25)
[2022-05-02] MEDS: *HR* Enoxaparin 40 MG/0.4 ML SYRINGE SQ SCH (07:40)
[2022-05-02 08:17] VITALS: TEMP 98.4
[2022-05-02] MEDS ORDERED: Ibuprofen 800 MG TABLET PO ONE (09:28)
[2022-05-02] MEDS ORDERED: *HR* OxyCODONE Immed Rel 5 MG TABLET PO PRN (09:28)
[2022-05-02] MEDS ORDERED: Aspirin Enteric Coated 81 MG Tablet PO SCH (09:30)
[2022-05-02] MEDS: NIFEdipine XL (24 HR) 30 MG TAB.ER.24 PO SCH (09:43)
[2022-05-02] MEDS: lisinopriL 20 MG TABLET PO SCH (09:44)
[2022-05-02] MEDS: atenoloL 50 MG TABLET PO SCH (09:44)
[2022-05-02] MEDS: ARIPiprazole 10 MG TABLET PO SCH (09:44)
[2022-05-02] MEDS: METHIMAZOLE 2.5 MG PO SCH (09:45)
[2022-05-02 11:58] VITALS: BP 141/79; PULSE 73; O2SAT 96
[2022-05-02] MEDS ORDERED: Acetaminophen 325 MG TABLET PO SCH (12:00)
[2022-05-02 13:53] LABS: BUN/Creatinine Ratio 9 (6-26); Blood Urea Nitrogen 5 mg/dL (8-23); Calcium 8.5 mg/dL (8.6-10.3); Carbon Dioxide 25 mEq/L (23-29); Chloride 101 mEq/L (98-107); Glucose 114 mg/dL (70-105); Magnesium 2.3 mg/dL (1.6-2.6); Osmolality,Calculated 280 (280-300); Phosphorous 3.1 mg/dL (2.7-4.5); Potassium 3.3 mEq/L (3.5-5.1); Sodium 136 mEq/L (136-145); eGFR For African Americans > 60 (> 60); eGFR For Non-African Americans > 60 (> 60)
== END 2022-05-02 15:49 | disposition home health service (06) | DRG 330 ==
LOC: SAMDAY 11:44 → 3ANU 18:36
PROVIDERS: ADMIT Surgery; ATTEND Surgery